=== PATIENT | female | born 1960 | race Caucasian/White ===

== ENCOUNTER 2017-05-09 08:47 | Outpatient (CLI) | payer OTHER ==
--- NOTE | 2017-05-09 10:03 | MMO ---
BILATERAL SCREENING MAMMOGRAMS: Date: 05/09/17 Comparison made to prior exams from 2013, 2014, and 2016. This patient's mammogram was interpreted with the assistance of computer-aided detection. FINDINGS: The patient is post right breast cancer with radiation and surgery. Heterogeneously dense glandular pattern. Postoperative changes in the right breast appear stable. No evidence of mass or distortion. No interval change identified. Recommend one year follow-up. IMPRESSION: BIRADS 2: Benign Finding(s) POS: DEE
== END 2017-05-09 08:48 | disposition home or self-care (01) ==
LOC: SCSMAMMO 08:47
PROVIDERS: ATTEND Internal Medicine
DX: Z12.31 Encounter for screening mammogram for malignant neoplasm of breast (principal)
CPT/HCPCS: 77067; G0202

== ENCOUNTER 2018-05-16 09:17 | Outpatient (CLI) | payer OTHER ==
--- NOTE | 2018-05-16 13:40 | MMO ---
BILATERAL DIGITAL SCREENING MAMMOGRAMS: Date: 05/16/18 HISTORY: 58-year-old female presents for digital screening mammogram. COMPARISON: 05/09/17, 05/08/16, and 05/04/13. FINDINGS: This patient's mammogram was interpreted with the assistance of computer-aided detection. The breasts are heterogeneously dense, which can obscure small masses. Stable architectural distortio n in the upper outer right breast consistent with prior lumpectomy and radiation. No direct or indire ct evidence of malignancy. Appearance is stable. IMPRESSION: BIRADS 2: Benign Finding(s) Continue routine screening. POS: DEE
== END 2018-05-16 09:18 | disposition home or self-care (01) ==
LOC: SCSMAMMO 09:17
PROVIDERS: ATTEND Internal Medicine
DX: Z12.31 Encounter for screening mammogram for malignant neoplasm of breast (principal)
CPT/HCPCS: 77067

== ENCOUNTER 2021-09-06 19:37 | Observation (INO) | payer BC ==
[2021-09-06] MEDS ORDERED: levETIRAcetam in NS 200 ML ONE (19:57)
[2021-09-06 20:23] LABS: #Basophils 0.1 thou/uL (0.0-0.2); #Eosinphils 0.3 thou/uL (0.0-0.7); #Lymphocytes 3.2 thou/uL (1.20-3.40); #Monocytes 0.7 thou/uL (0.11-0.59); #Neutrophils 3.7 thou/uL (1.40-6.50); %Basophils 0.8 % (0.0-1.0); %Eosinophils 4.2 % (0.0-10.0); %Lymphocytes 39.9 % (21.0-51.0); %Monocytes 8.2 % (0.0-10.0); %Neutrophils 46.9 % (42.0-75.0); Hemoglobin 14.4 g/dL (12.0-16.0); Mean Corpuscular HGB CONC 33.7 g/dL (32.0-36.0); Mean Corpuscular Hemoglobin 30.6 pg (27.0-31.0); Mean Corpuscular Volume 90.8 fL (78.0-98.0); Mean Platelet Volume 7.2 fL (7.4-10.4); Platelet Count 302 thou/uL (130-400); RBC Distribution Width 11.4 % (11.5-14.5)
[2021-09-06] MEDS ORDERED: Ondansetron PF 4 MG/2 ML Vial ONE (20:32)
[2021-09-06 20:40] LABS: Acetaminophen Less than 10.0 mcg/mL (10.0-30.0); Alcohol Less than 10 mg/dL (Less than 10); Salicylate Less than 8.0 mg/dL (15.0-30.0)
[2021-09-06 20:43] LABS: ALT (SGPT) 14 U/L (8-55); AST (SGOT) 19 U/L (5-34); Albumin 4.4 g/dL (3.4-4.8); Alkaline Phosphatase 61 U/L (40-110); Anion Gap 17 mmol/L (10-20); BUN (Urea Nitrogen) 15 mg/dL (9.8-20.1); Bilirubin, Total 0.4 mg/dL (0.2-1.2); Calc. Creatinine Clearance 0 mL/min (70-130); Calcium 9.5 mg/dL (7.8-10.44); Carbon Dioxide 20 mmol/L (23-31); Chloride 107 mmol/L (98-107); Globulin 2.4 g/dL (2.4-3.5); Glucose 142 mg/dL (80-115); Potassium 3.4 mmol/L (3.5-5.1); Protein, Total 6.8 g/dL (5.8-8.1); Sodium 141 mmol/L (136-145)
[2021-09-06] MEDS ORDERED: Ondansetron PF 4 MG/2 ML Vial IVP PRN (22:43)
[2021-09-06] MEDS ORDERED: Lorazepam 2 MG/ML VIAL SLOW IVP PRN (22:43)
[2021-09-06] MEDS ORDERED: Acetaminophen 325 MG TAB PO PRN (22:43)
[2021-09-06] MEDS ORDERED: levETIRAcetam in NS 500 MG in Premix Bag 1 BAG IVPB SCH (23:00)
[2021-09-06] MEDS ORDERED: Potassium Chloride 20 MEQ in Lactated Ringer's 1,000 ML IV SCH (23:15)
[2021-09-06 23:18] LABS: BHCG - Serum Negative (NEGATIVE); Pregs Control Background? CLEAR/WHITE (CLR/WHITE); Pregs Control Bar Appear? YES (CONTROL BAR)
[2021-09-06] MEDS ORDERED: levETIRAcetam in NS 100 ML ONE (23:53)
[2021-09-07 04:44] LABS: #Basophils 0.1 thou/uL (0.0-0.2); #Eosinphils 0.1 thou/uL (0.0-0.7); #Lymphocytes 1.4 thou/uL (1.20-3.40); #Monocytes 0.5 thou/uL (0.11-0.59); #Neutrophils 5.5 thou/uL (1.40-6.50); %Basophils 0.7 % (0.0-1.0); %Eosinophils 1.4 % (0.0-10.0); %Lymphocytes 17.9 % (21.0-51.0); %Monocytes 7.1 % (0.0-10.0); Hemoglobin 12.7 g/dL (12.0-16.0); Mean Corpuscular HGB CONC 33.1 g/dL (32.0-36.0); Mean Corpuscular Hemoglobin 30.5 pg (27.0-31.0); Mean Corpuscular Volume 92.2 fL (78.0-98.0); Mean Platelet Volume 7.4 fL (7.4-10.4); Platelet Count 269 thou/uL (130-400); RBC Distribution Width 11.5 % (11.5-14.5); Red Blood Cell (RBC) Count 4.14 mill/uL (4.20-5.40); White Blood Cell (WBC) Count 7.6 thou/uL (4.8-10.8)
[2021-09-07 05:05] LABS: Anion Gap 12 mmol/L (10-20); BUN (Urea Nitrogen) 11 mg/dL (9.8-20.1); Calc. Creatinine Clearance 84 mL/min (70-130); Calcium 8.6 mg/dL (7.8-10.44); Carbon Dioxide 22 mmol/L (23-31); Chloride 111 mmol/L (98-107); Glucose 102 mg/dL (80-115); Magnesium 1.9 mg/dL (1.6-2.6); Potassium 3.9 mmol/L (3.5-5.1); Sodium 141 mmol/L (136-145)
[2021-09-07] MEDS ORDERED: levETIRAcetam in NS 500 MG in Premix Bag 1 BAG IVPB SCH (09:00)
[2021-09-07] MEDS ORDERED: Enoxaparin Sodium 40 MG/0.4 ML SYRINGE SC SCH (09:00)
[2021-09-07] MEDS ORDERED: Famotidine 20 MG TAB PO SCH (09:00)
[2021-09-07] MEDS ORDERED: Famotidine 20 MG TAB ONE (09:38)
[2021-09-07] MEDS ORDERED: Enoxaparin Sodium 40 MG/0.4 ML SYRINGE ONE (09:38)
[2021-09-07 11:50] LABS: SARS-CoV-2 PCR by NAA Not Detected (NotDetected)
[2021-09-07 13:48] VITALS: BMI 25.7
[2021-09-07 16:38] VITALS: BP 117/74; TEMP 98.3
[2021-09-08 03:30] LABS: Amphetamine Not Detected (NotDetected); Barbiturates Screen Not Detected (NotDetected); Benzodiazepine Screen Not Detected (NotDetected); Cocaine Metabolite Screen Not Detected (NotDetected); Methadone Not Detected (NotDetected); Methamphetamine Not Detected (NotDetected); Opiate Screen Not Detected (NotDetected); Oxycodone Screen Not Detected (NotDetected); Phencyclidine (PCP) Not Detected (NotDetected); THC/Cannabinoid Screen Not Detected (NotDetected); Tricyclic Screen Not Detected (NotDetected)
[2021-09-08] MEDS ORDERED: Levothyroxine Sodium 75 MCG TAB PO SCH (06:00)
== END 2021-09-07 17:24 | disposition home or self-care (01) ==
LOC: ERS 19:37 → ERHOLD 22:04 → NEURO 09-07 15:04
PROVIDERS: ADMIT Internal Medicine; ATTEND Physician Assistant
DX: R56.9 Unspecified convulsions (principal); E03.9 Hypothyroidism, unspecified; E87.6 Hypokalemia; E16.2 Hypoglycemia, unspecified; Z85.038 Personal history of other malignant neoplasm of large intestine; Z79.82 Long term (current) use of aspirin; Z20.822 Contact with and (suspected) exposure to COVID-19
CPT/HCPCS: 36415; 36416; 70450; 70553; 80048; 80053; 80306; 80307; 83735; 84146; 84443; 84484; 84703; 85025; 93005; 95816; 95819; 95957; 96365; 96366; 96375; J1650; J1953; J2405; J3480; J7120; U0003; U0005